=== PATIENT | male | born 1950 | race Caucasian/White ===

== ENCOUNTER → 2016-09-09 | Day surgery (SDC) | payer BC ==
[2016-09-02 15:09] VITALS: BMI 23.0
[~2016-09-09] VITALS: Ht 170.2 cm; Wt 68.2 kg
[~2016-09-09] MED LIST: KRIL1000 PO; LIDOCAINE HCL 2% 2 ML VIAL (20MG/ML) ONE; MIDAZOLAM HCL 1 MG/ML 2ML VIAL ONE; MULT-506 PO; ONDANSETRON INJ 2 MG/ML 2 ML VIAL ONE; PROPOFOL IV EMULSION 10 MG/ML 20 ML VIAL IV ONE; SIMV10TA2 PO
[2016-09-09 09:50] VITALS: Ht 170.2 cm; Wt 68.2 kg
--- NOTE | 2016-09-09 10:13 | Endo History and Physical ---
History & Physical Date of Service: Sep 09, 2016. Chief Complaint: SCREENING Referring Physician: DR. BRADFORD History of Present Illness 65 yo CM who presents for screening colonoscopy. Past Medical History High Cholesterol Past Surgical History Hx Cardiac Surgery: No Hx Internal Defibrillator: No Hx Pacemaker: No Hx Abdominal Surgery: No Hx of Implantable Prosthesis: No Hx Post-Op Nausea and Vomiting: No Hx Cancer Surgery: No Hx Thoracic Surgery: No Hx Orthopedic: Yes (LEFT KNEE ARTHROSCOPY, LUMBAR L5 DISCECTOMY) Hx Urinary Tract Surgery: No Family History None Social History Smoking Status: Former Smoker Hx Substance Use: No Hx Alcohol Use: Yes (1 glass wine per wk) Allergies Coded Allergies: No Known Allergies (Unverified , 09/09/16) Current Medications Reported Home Medications Medications Dose Route/Sig Max Daily Dose Days Date Category Multivitamin (Multivitamins) Tab 1 Tab PO QAM 09/02/16 Reported Krill Oil 1 Cap Cap 1 Cap PO QAM 09/02/16 Reported Zocor (Simvastatin) 10 Mg Tab 10 Mg PO QAM 09/02/16 Reported Vital Signs Weight (Kilograms): 68.18 Height (Feet): 5 Height (Inches): 7 Date Time Temp Pulse Resp B/P Pulse Ox O2 Delivery O2 Flow Rate FiO2 09/09/16 10:04 36.6 106 18 161/92 99 Room Air Physical Exam General Appearance: WD/WN, no apparent distress Respiratory/Chest: Auscultation: breath sounds normal Cardiovascular: Heart Auscultation: RRR Abdomen: Bowel Sounds: normal Inspection & Palpation: soft, non-distended, no tenderness, guarding & rebound Assessment and Plan Assessment: 65 yo CM who presents for screening colonoscopy. Plan: Proceed with colonoscopy.
--- NOTE | 2016-09-09 11:28 | Discharge Instructions ---
Endoscopy Patient Instructions Date / Procedure(s) Performed Sep 09, 2016. Colonoscopy Allergy Information Coded Allergies: No Known Allergies (Unverified , 09/09/16) Discharge Date / Findings Sep 09, 2016. Colon polyps Diverticulosis Internal hemorrhoids Medication Instructions Stopped Medication(s): INSTRUCTED TO STOP KRILL OIL. HASNT TAKEN MULTIVITAM FOR A FEW DAYS. OK to resume all medications today as prescribed Reported Home Medications Medications Dose Route/Sig Max Daily Dose Days Date Category Multivitamin (Multivitamins) Tab 1 Tab PO QAM 09/02/16 Reported Krill Oil 1 Cap Cap 1 Cap PO QAM 09/02/16 Reported Zocor (Simvastatin) 10 Mg Tab 10 Mg PO QAM 09/02/16 Reported Provider Instructions Activity Restrictions - No exercising or heavy lifting for 24 hours. - Do not drink alcohol the day of the procedure. - Do not drive a car or operate machinery until the day after the procedure. - Do not make any important decisions or sign important papers in 24 hours after the procedure. Following Day: - Return to full activity which may include returning to work/school. Diet Start your diet with liquids and light foods (jello, soup, juice, toast). Then eat your usual diet if not nauseated. Treatment For Common After Affects For mild abdominal pain, bloating, or excessive gas: - Rest - Eat lightly - Lie on right side Follow-Up Information Follow-up with DR. BRADFORD as scheduled Anesthesia Information What You Should Know You have had a procedure that required some medicine to reduce anxiety and discomfort. This treatment is called moderate sedation. After receiving the treatment, you may be sleepy, but you will be able to breathe on your own. The effects of the treatment may last for several hours. Follow these instructions along with Activity/Diet recommendations noted above: * Do NOT do anything where dizziness or clumsiness would be dangerous. * Rest quietly at home today, then you can be up and about tomorrow. * Have a responsible person stay with you the rest of today. * You may have had an I.V. today. If so, you may take the dressing off later today. Recommendations Call your doctor if: * Trouble breathing * Continuous vomiting for more than 24 hours * Temperature above 101 degrees * Severe abdominal pain or bloating * Pain not relieved by pain medicine ordered * There is increased drainage or redness from any incision * A large amount of rectal bleeding greater than 2-3 tablespoons. (If you had a polyp/s removed or have hemorrhoids, a small amount of blood - from the rectum is to be expected.) * You have any unanswered questions or concerns. IN THE EVENT OF A SERIOUS EMERGENCY, GO TO THE NEAREST EMERGENCY ROOM Your discharge instructions were prepared by provider Brian Grayson. Patient Instructions Signature Page Nilay Jain Patient (or Guardian) Signature/Date: I have read and understand the instructions given to me by my caregivers. Caregiver/RN/Doctor Signature/Date: The above-named patient and/or guardian has received patient instructions on this date. + Original Patient Signature Page (only) stays with chart. Please make copy for patient.
--- NOTE | 2016-09-09 11:28 | GI REPORT ---
Procedure Date: 09/09/2016 10:27 AM Procedure: Colonoscopy Indications: Screening for colorectal malignant neoplasm Medicines: Monitored Anesthesia Care Complications: No immediate complications. Estimated Blood Loss: Estimated blood loss: none. Procedure: Pre-Anesthesia Assessment: - Prior to the procedure, a History and Physical was performed, and patient medications and allergies were reviewed. The patient's tolerance of previous anesthesia was also reviewed. The risks and benefits of the procedure and the sedation options and risks were discussed with the patient. All questions were answered, and informed consent was obtained. Prior Anticoagulants: The patient has taken no previous anticoagulant or antiplatelet agents. ASA Grade Assessment: II - A patient with mild systemic disease. After reviewing the risks and benefits, the patient was deemed in satisfactory condition to undergo the procedure. After I obtained informed consent, the scope was passed under direct vision. Throughout the procedure, the patient's blood pressure, pulse, and oxygen saturations were monitored continuously. The scope was introduced through the anus and advanced to the terminal ileum. The colonoscopy was performed without difficulty. The patient tolerated the procedure well. The quality of the bowel preparation was good. The terminal ileum, ileocecal valve, appendiceal orifice, and rectum were photographed. Findings: Six sessile polyps were found in the rectum, in the sigmoid colon and in the ascending colon. The polyps were 5 to 6 mm in size. These polyps were removed with a hot snare. Resection was complete, but the polyp tissue was only partially retrieved. Multiple small-mouthed diverticula were found in the sigmoid colon. Non-bleeding internal hemorrhoids were found during retroflexion. The hemorrhoids were small. Impression: - Six 5 to 6 mm polyps in the rectum, in the sigmoid colon and in the ascending colon, removed with a hot snare. Complete resection. Partial retrieval. - Diverticulosis in the sigmoid colon. - Non-bleeding internal hemorrhoids. Recommendation: - Resume previous diet. - Continue present medications. - Repeat colonoscopy for surveillance based on pathology results. - Return to primary care physician as previously scheduled. Brian Grayson DO 09/09/2016 11:28:13 AM This report has been signed electronically. Note Initiated On: 09/09/2016 10:27 AM I attest to the content of the Intraoperative Record and orders documented therein, exceptions below
[2016-09-09 11:45] VITALS: BP 151/88; PULSE 82; O2SAT 100
--- NOTE | 2016-09-09 12:34 | Anesthesiology Progress Note ---
Anesthesia Post Op Note Date & Time Sep 09, 2016 at 12:34 Vital Signs Pain Intensity: 0 Vital Signs Past 12 Hours Date Time Temp Pulse Resp B/P Pulse Ox O2 Delivery O2 Flow Rate FiO2 09/09/16 11:45 82 18 151/88 100 Room Air 09/09/16 11:30 82 18 130/81 99 Room Air 09/09/16 11:15 82 18 131/74 98 Room Air 09/09/16 10:04 36.6 106 18 161/92 99 Room Air Notes Mental Status: alert / awake / arousable Nausea / Vomiting: adequately controlled Pain: adequately controlled Airway Patency, RR, SpO2: stable & adequate BP & HR: stable & adequate Hydration State: stable & adequate Anesthetic Complications: no major complications apparent
== END | disposition home or self-care (01) ==
LOC: C.GI 09:34
PROVIDERS: ATTEND Internal Medicine
DX: Z12.11 Encounter for screening for malignant neoplasm of colon (principal); D12.5 Benign neoplasm of sigmoid colon; K62.1 Rectal polyp; K57.30 Diverticulosis of large intestine without perforation or abscess without bleeding; K64.8 Other hemorrhoids; Z98.890 Other specified postprocedural states